=== PATIENT | female | born 1955 | race Caucasian/White ===

== ENCOUNTER 2017-01-02 18:15 | Emergency (ER) | payer BC ==
[2017-01-02 18:38] VITALS: BP 132/83
--- NOTE | 2017-01-02 19:25 | UC ---
Throat Pain/Nasal Chris HPI - HPI Summary HPI Summary: ST for 3d, followed a week of URI. No fever. Her grandson was visiting last week and had documented Strep. Now hard to eat due to throat pain. Glands are tender. Ears hurt. No cough. No sinus congestion - History of Current Complaint Chief Complaint: UCGeneralIllness Stated Complaint: SORE THROAT Time Seen by Provider: 01/02/17 19:12 Hx Obtained From: Patient Onset/Duration: Gradual Onset, Lasting Weeks - 1.5 Severity: Mild Cough: None Associated Signs & Symptoms: Positive: Dysphagia, Hoarseness, Fever - Epiglottits Risk Factors Epiglottis Risk Factors: Negative - Allergies/Home Medications Allergies/Adverse Reactions: Allergies Allergy/AdvReac Type Severity Reaction Status Date / Time Sulfa Antibiotics Allergy Vomiting Verified 01/02/17 18:39 Penicillins AdvReac GI Upset Verified 01/02/17 18:39 PMH/Surg Hx/FS Hx/Imm Hx Previously Healthy: Yes - Surgical History Surgical History: Yes Surgery Procedure, Year, and Place: HERNIA REPAIR. T&A. 1 C-SECT - Family History Known Family History: Positive: Respiratory Disease - Social History Occupation: Employed Full-time Lives: With Family Alcohol Use: Rare Substance Use Type: None Smoking Status (MU): Never Smoked Tobacco Review of Systems Constitutional: Fever, Chills, Fatigue Skin: Negative Eyes: Negative ENT: Sore Throat, Ear Ache Respiratory: Negative Cardiovascular: Negative Gastrointestinal: Negative Genitourinary: Negative Motor: Negative Neurovascular: Negative Musculoskeletal: Calf Tenderness, Myalgia Neurological: Headache Psychological: Negative All Other Systems Reviewed And Are Negative: Yes Physical Exam Triage Information Reviewed: Yes Appearance: Well-Appearing, No Pain Distress, Well-Nourished Vital Signs: Initial Vital Signs Temp 97.9 F 01/02/17 18:34 Pulse 84 01/02/17 18:34 BP 132/83 01/02/17 18:34 Pulse Ox 98 01/02/17 18:34 Vital Signs Reviewed: Yes Eye Exam: Normal ENT: Positive: Hearing grossly normal, Pharyngeal erythema, TMs normal - except bilat fluid levels, Muffled/hoarse voice - hoarse. Negative: Tonsillar swelling , Tonsillar exudate, Trismus Neck exam: Normal Respiratory Exam: Normal Musculoskeletal Exam: Normal Neurological Exam: Normal Psychological Exam: Normal Skin Exam: Normal Throat Pain/Nasal Course/Dx - Differential Dx/Diagnosis Differential Diagnosis/HQI/PQRI: Pharyngitis, URI Provider Diagnoses: Strep throat Discharge - Discharge Plan Condition: Stable Disposition: HOME Prescriptions: Cephalexin CAP* [Keflex CAP*] 500 mg PO TID #30 cap Patient Education Materials: Strep Throat (ED) Referrals: Tamara Hi [Primary Care Provider] -
== END 2017-01-02 19:31 | disposition home or self-care (01) ==
LOC: UCCORT 18:15
DX: J02.0 Streptococcal pharyngitis (principal); Z88.0 Allergy status to penicillin; Z88.2 Allergy status to sulfonamides
CPT/HCPCS: 99212; G0463

== ENCOUNTER 2017-02-16 08:09 | Emergency (ER) | payer BC ==
[2017-02-16 08:21] VITALS: BP 126/75
--- NOTE | 2017-02-16 08:38 | UC ---
Throat Pain/Nasal Chris HPI - History of Current Complaint Chief Complaint: UCGeneralIllness Stated Complaint: MOUTH/ORAL COMPLAINT Time Seen by Provider: 02/16/17 08:30 Hx Obtained From: Patient ?: No Onset/Duration: Gradual Onset - tongue soreness with white coating., Lasting Weeks - 2, Still Present - off on. Cough: None Associated Signs & Symptoms: Positive: Other - white coating on the tongue. - Epiglottits Risk Factors Epiglottis Risk Factors: Negative - Allergies/Home Medications Allergies/Adverse Reactions: Allergies Allergy/AdvReac Type Severity Reaction Status Date / Time Sulfa Antibiotics Allergy Vomiting Verified 02/16/17 08:21 Penicillins AdvReac GI Upset Verified 02/16/17 08:21 Home Medications: Home Medications Lactobacillus [Probiotic] 1 cap PO DAILY 02/16/17 [History Confirmed 02/16/17] PMH/Surg Hx/FS Hx/Imm Hx Cardiovascular History Of: Denies: Hypertension Respiratory History Of: Denies: Asthma - Surgical History Surgical History: Yes Surgery Procedure, Year, and Place: HERNIA REPAIR. T&A. 1 C-SECT - Family History Known Family History: Positive: Cardiac Disease, Diabetes, Respiratory Disease Negative: Hypertension - Social History Occupation: Employed Full-time Lives: With Family Alcohol Use: Rare Substance Use Type: None Smoking Status (MU): Never Smoked Tobacco - Immunization History Most Recent Influenza Vaccination: none Review of Systems All Other Systems Reviewed And Are Negative: Yes Physical Exam Triage Information Reviewed: Yes Appearance: Well-Appearing, No Pain Distress, Well-Nourished Vital Signs: Initial Vital Signs Temp 97.5 F 02/16/17 08:15 Pulse 80 02/16/17 08:15 Resp 16 02/16/17 08:15 BP 126/75 02/16/17 08:15 Pulse Ox 99 02/16/17 08:15 Vital Signs Reviewed: Yes Eyes: Positive: Conjunctiva Clear ENT: Positive: Pharynx normal - Tongue non-tender. She has been brushing the tongue., TMs normal Neck exam: Normal Respiratory Exam: Normal Cardiovascular Exam: Normal Musculoskeletal Exam: Normal Neurological Exam: Normal Psychological Exam: Normal Skin Exam: Normal Throat Pain/Nasal Course/Dx - Differential Dx/Diagnosis Differential Diagnosis/HQI/PQRI: Laryngitis, Peritonsillar Abscess, Pharyngitis Provider Diagnoses: Oral candidiasis. Discharge - Discharge Plan Condition: Stable Disposition: HOME Prescriptions: Nystatin SUSPENSION* 1 teasp PO QID #300 ml Patient Education Materials: Oral Candidiasis (ED), Nystatin (By mouth) Referrals: Tamara Hi [Primary Care Provider] - 2 Weeks (recheck blood pressure)
== END 2017-02-16 08:48 | disposition home or self-care (01) ==
LOC: UCCORT 08:09
DX: B37.0 Candidal stomatitis (principal); Z88.0 Allergy status to penicillin; Z88.2 Allergy status to sulfonamides
CPT/HCPCS: 99212; G0463